=== PATIENT | male | born 1945 | race Caucasian/White ===

== ENCOUNTER 2023-06-04 05:15 | Emergency (ER) | payer OTHER, SELFPAY ==
[2023-06-04 05:21] VITALS: BP 119/69; PULSE 78; RESP 18; TEMP 36.7; O2SAT 93; BMI 25.1
--- NOTE | 2023-06-04 05:37 | XRR_ITS ---
PROCEDURE INFORMATION: Exam: XR Chest Exam date and time: 06/04/2023 5:40 AM Age: 78 years old Clinical indication: Pain; Right-sided; Prior surgery; Surgery date: 6+ months; Surgery type: Triple bypass; Additional info: Rib pain on right TECHNIQUE: Imaging protocol: Radiologic exam of the chest. Views: 1 view. COMPARISON: No relevant prior studies available. FINDINGS: Lungs: Unremarkable. No consolidation. Pleural spaces: Unremarkable. No pleural effusion. No pneumothorax. Heart/Mediastinum: Unremarkable. No cardiomegaly. Bones/joints: The patient is status post median sternotomy. XR/XR chest 1V portable [id number] IMPRESSION: No evidence of acute pulmonary process.
--- NOTE | 2023-06-04 06:13 | W.ED.GENADLT ---
HPI - General Adult General: Chief complaint: General Medical Stated complaint: RIGHT LOWER RIB PAIN Time Seen by Provider: 06/04/23 05:22 Source: patient History of Present Illness: 78-year-old male with pleuritic right-sided chest discomfort, mainly with movement and cough, for the past several weeks. He has been to a couple different facilities, and has undergone work-ups without cause or treatment. He denies significant trouble breathing. He is not dependent on oxygen. He takes blood pressure medication, sertraline, and alprazolam. No fever. No sputum production. No lower extremity swelling. Pain is localized to the right lateral chest wall. 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 Chronic hiccups Psychiatric care Physical Exam Const: COMMON NORMALS: no acute distress GENERAL APPEARANCE: cooperative; not ill appearing and not frail appearing HENMT: COMMON NORMALS: normocephalic, atraumatic and Normal external nose present HEAD & SCALP: normocephalic and atraumatic FACE & SINUS: normal facial exam and face symmetric NOSE: Normal external nose present Eye: COMMON NORMALS: Equal, round and reactive pupils present and EOMs intact bilaterally PUPIL: Yes Equal, round and reactive pupils present Neck/C-Spine: GENERAL: Yes trachea midline Chest: CHEST: Yes Symmetrical chest wall rise and Yes tenderness (R lateral chest wall. ) Resp: COMMON NORMALS: normal respiratory effort, No retractions, No use of accessory muscles and clear to auscultation bilaterally AUSCULTATION: clear to auscultation bilaterally Cardio: COMMON NORMALS: regular rate and regular rhythm RATE: regular rate RHYTHM: regular rhythm GI: COMMON NORMALS: Normal to inspection, nondistended, normoactive bowel sounds present Extremity: COMMON NORMALS: no pedal edema Neuro: CHARLEY COMA SCALE: document GCS findings Charley coma scale eye opening: Spontaneous Charley coma scale verbal response: Orientated Trinity coma scale motor response: Obey commands Charley coma scale total score: 15 SENSORY EXAM: Yes extremities (intact) Psych: COMMON NORMALS: speech normal SPEECH: Yes normal speech Skin: COMMON NORMALS: no rashes or lesions noted GENERAL SKIN EXAM: no rashes or lesions noted Course Vital Signs: Vital signs: Vital Signs Temperature 98.0 F 06/04/23 05:21 Pulse Rate 82 06/04/23 06:34 Respiratory Rate 18 06/04/23 06:34 Blood Pressure 111/87 06/04/23 06:34 Pulse Oximetry 95 06/04/23 06:34 Oxygen Delivery Me thod Room Air 06/04/23 05:21 MDM - General Adult Medical Decision Making On exam the patient's lungs are clear. There is a small lipoma under skin of the anterior chest, right over the right upper quadrant of the abdomen, but this is nontender. There is right lateral chest wall tenderness at about rib 6. There is no rash, mass, or discoloration in this area. His chest x-ray is normal. He has undergone work-ups at other facilities. This is most likely chest wall inflammation/pleurisy/potentially costochondritis. His vitals are stable. He will be given a Medrol Dosepak, and told to follow-up with his primary care physician. XR interpretation done by ED provider, pending radiology final review Discharge Plan Discharge Patient Disposition: Home Clinical Impression: Pleurisy, residual Condition: Stable Prescriptions: New Medrol (Craig) 4 mg tablets,dose pack See Rx Instructions .ROUTE .COMPLEX Qty: 21 0RF Rx Instructions: orally per package directions No Action sertraline 200 mg capsule 200 mg PO DAILY alprazolam 0.5 mg tablet 0.5 mg PO BID lisinopril 20 mg tablet 20 mg PO BID metoprolol tartrate 25 mg tablet 12.5 mg PO BID aspirin [Adult Low Dose Aspirin] 81 mg tablet,delayed release (DR/EC) 81 mg PO DAILY amlodipine 5 mg tablet 5 mg PO DAILY metoclopramide HCl [Reglan] 10 mg tablet 10 mg PO .twice daily 21 Days Qty: 42 0RF fluticasone propionate 50 mcg/actuation spray,suspension 1 spray intranasal DAILY PRN (Reason: allergy symptoms) Qty: 16 0RF Rx Instructions: administer into each nostril amoxicillin-pot clavulanate 875-125 mg tablet 1 tab PO BID Qty: 20 0RF Discharge Orders: Discharge ED (Routine); Ordered 06/04/23 Ordered By: Mamadou Marte Referrals: Freeman Orlando DO [Primary Care Provider] - Patient Instructions: Pleurisy (ED) Activity Restrictions/Additional Instructions: Return for fever greater than 100, worsening shortness of breath, worsening pain despite treatment, other concerning symptoms. Follow-up with your doctor. Coding Level of Care Code ED [employer] for [employer]
[2023-06-04 06:34] VITALS: BP 111/87; PULSE 82; RESP 18; O2SAT 95
[2023-06-04] MEDS: ketorolac 10 mg Tablet PO (06:34)
[2023-06-04] MEDS: dexamethasone 4 mg Tablet 10 MG PO (06:34)
== END 2023-06-04 06:39 | disposition home or self-care (01) ==
PROVIDERS: Emergency Provider Emergency Medicine; PCP Family Medicine
DX: R09.1 Pleurisy (principal); Z79.82 Long term (current) use of aspirin
CPT/HCPCS: 71045; 99283; J8540